=== PATIENT | female | born 1945 | race Caucasian/White ===

== ENCOUNTER 2016-08-22 11:19 | Emergency (ER) | payer MEDICARE, BC ==
[2016-08-22 11:42] VITALS: BP 131/72
--- NOTE | 2016-08-22 12:11 | EDM.PDOC ---
ED HPI GENERAL MEDICAL PROBLEM - General Chief Complaint: Lower Extremity Injury/Pain Stated Complaint: LT LEG PAIN Time Seen by Provider: 08/22/16 12:06 Source of Information: Reports: Patient History Limitations: Reports: No Limitations - History of Present Illness INITIAL COMMENTS - FREE TEXT/NARRATIVE: 71-year-old female presents for evaluation treatment of pain in the popliteal area of her left knee. Patient reports that the pain began night. She states this progressively worsened. She states pain is worse when she flexes her knee and cannot flex beyond 90. Patient denies any numbness or tingling to the leg distally. Patient reports that she is scheduled to have eye surgery on Wednesday. She is concerned she may have a blood clot. She states that her eye surgery has been canceled twice and she is concerned that if she does not have this evaluated today she may be forced to cancel the eye surgery again. Patient reports that she was in [place] recently. 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 Denies: Joint Swelling Skin: Denies: Erythema Neurological: Denies: Numbness, Tingling ED EXAM, GENERAL - Physical Exam Exam: See Below Exam Limited By: No Limitations General Appearance: Alert, WD/WN, No Apparent Distress Respiratory/Chest: No Respiratory Distress, Lungs Clear, Normal Breath Sounds Cardiovascular: Normal Peripheral Pulses, Regular Rate, Rhythm, No Murmur Peripheral Pulses: 2+: Posterior Tibial (L), Posterior Tibial (R), Dorsalis Pedis (L), Dorsalis Pedis (R) Extremities: Normal Inspection, Normal Range of Motion, Leg Pain (left posterior knee), Other (tenderness to the left popliteal fossa; negative anterior drawer and posterior drawer to the left knee; pain with flexion > 90 degrees to the left knee; no cyst appreciated). No: Joint Swelling, Lay's Sign, Increased Warmth Neurological: Alert, Oriented, Normal Cognition, Normal Gait Psychiatric: Normal Affect, Normal Mood Skin Exam: Warm, Dry. No: Erythema Course - Vital Signs Last Recorded V/S: Last Vital Signs Temp 37.1 C 08/22/16 11:39 Pulse 92 08/22/16 11:39 Resp 16 08/22/16 11:39 BP 131/72 08/22/16 11:39 Pulse Ox 96 08/22/16 11:39 - Radiology Interpretation Free Text/Narrative:: Ultrasound of the left lower extremity impression per [facility]: Normal left extremity duplex venous ultrasound. xray of the left knee shows a higher riding patella, degenerative changes, no acute fractures or dislocations. - Re-Assessments/Exams Free Text/Narrative Re-Assessment/Exam: 08/22/16 14:26 I reviewed the x-ray and ultrasound results with the patient. I feel she is likely experiencing some arthritic changes. She cannot take ibuprofen or NSAIDs due to her upcoming surgery. I advised her to take Tylenol, rest and ice the leg. She should utilize ibuprofen or Motrin after her surgery if she is able to. She should follow-up with her primary care provider for symptoms persist after her surgery. Discharge instructions as documented. Departure - Departure Time of Disposition: 14:28 Disposition: Home, Self-Care 01 Condition: Good Clinical Impression: Knee pain, left - Discharge Information Instructions: Knee Pain Referrals: Berenice Ponce DO [Primary Care Provider] - Forms: ED Department Discharge Additional Instructions: OTC tylenol or motrin after your surgery for pain. Ice the area 3 or 4 times a day for 10-15 minutes. Elevate if you appreciate swelling. Follow-up with PCP in 1-2 weeks if symptoms persist. Please return to the ER should your symptoms change or worsen. You had an ultrasound of the left lower extremity preformed in the ER that was negative for DVT or cyst. You had an xray of the left knee which did not show any acute fractures or dislocations.
--- NOTE | 2016-08-24 14:37 | CR ---
Left knee: AP, lateral and sunrise patellar views of the left knee were obtained. Mild medial joint space narrowing is seen. Lateral joint space is preserved. No joint effusion is seen. Minimal narrowing is noted off the lateral patellofemoral joint. No acute fracture or other abnormality is identified. Impression: 1. Mild degenerative change as noted above. Diagnostic code #2
--- NOTE | 2016-08-24 14:37 | US ---
Left lower extremity deep venous ultrasound: Duplex and color flow imaging was obtained of the left common femoral, proximal greater saphenous, superficial femoral, popliteal, posterior tibial and peroneal veins. Right common femoral vein was also evaluated. Normal phasic flow, augmentation and compression are seen. No popliteal cyst is identified. Impression: 1. No evidence of deep venous thrombosis within the left lower extremity or within the right common femoral vein. Diagnostic code #1 I agree with preliminary report issued by [facility] ([facility] preliminary report dictated on 08/22/16, 2:59 PM Central Time)
== END 2016-08-22 14:40 | disposition home or self-care (01) ==
LOC: JD.ED 11:19
DX: M25.562 Pain in left knee (principal); I10 Essential (primary) hypertension; Z79.899 Other long term (current) drug therapy
CPT/HCPCS: 73562-26-LT; 73562-LT; 93971-26-LT; 93971-LT; 99282; 99284-25

== ENCOUNTER 2016-12-22 10:58 | Day surgery (SDC) | payer MEDICARE, BC ==
[~2016-12-22 10:58] MED LIST: Cefuroxime 10 MG/ML SYRINGE EYERT SCH; Lidocaine 1% PF 2 ML SDV INJECT SCH; Pilocarpine 4% Ophth Soln 15 ML Bot EYERT SCH
[2016-12-22] MEDS: Polymyxin B/Trimethoprim 10 ML Bottle EYERT SCH ×3 (12:57→14:23)
[2016-12-22] MEDS: Brimonidine 0.2% Ophth Soln 5 ML Bottle EYERT SCH ×3 (13:02→14:23)
--- NOTE | 2016-12-22 13:02 | PCM.PREANE ---
Preanesthetic Assessment - Anesthesia/Transfusion/Family Hx Anesthesia History: Prior Anesthesia Reaction (1967 after D/C could not walk in straight line) Family History of Anesthesia Reaction: No Transfusion History: No Prior Transfusion(s) - Review of Systems General: No Symptoms Pulmonary: Cough Cardiovascular: No Symptoms Gastrointestinal: No Symptoms Neurological: No Symptoms Other: Reports: None - Physical Assessment NPO Status Date: 12/21/16 NPO Status Time: 17:30 Pulse: 78 O2 Sat by Pulse Oximetry: 95 Respiratory Rate: 16 Blood Pressure: 128/70 Temperature: 37.1 C Weight: 78.471 kg ASA Class: 2 Mental Status: Alert & Oriented x3 Airway Class: Mallampati = 1 Dentition: Reports: Normal Dentition Thyro-Mental Finger Breadths: 3 Mouth Opening Finger Breadths: 2 ROM/Head Extension: Full Lungs: Clear to Auscultation, Normal Respiratory Effort Cardiovascular: Regular Rate, Regular Rhythm, No Murmurs - Allergies Allergies/Adverse Reactions: Allergies Allergy/AdvReac Type Severity Reaction Status Date / Time No Known Allergies Allergy Verified 12/21/16 15:00 - Blood Blood Available: No Product(s) Available: None - Anesthesia Plan Pre-Op Medication Ordered: None - Acknowledgements Anesthesia Type Planned: MAC Pt an Appropriate Candidate for the Planned Anesthesia: Yes Alternatives and Risks of Anesthesia Discussed w Pt/Guardian: Yes Pt/Guardian Understands and Agrees with Anesthesia Plan: Yes PreAnesthesia Questionnaire Cardiovascular History: Reports: Hypertension Musculoskeletal History: Reports: Other (See Below) Other Musculoskeletal History: bone spurs to left foot - SUBSTANCE USE Smoking Status *Q: Never Smoker Tobacco Use Within Last Twelve Months: No Second Hand Smoke Exposure: No Days Per Week of Alcohol Use: 0 Number of Drinks Per Day: 0 Total Drinks Per Week: 0 Recreational Drug Use History: No - HOME MEDS Home Medications: Home Meds Ibuprofen [Motrin] 600 mg PO BID 08/22/16 [History] Lisinopril 5 mg PO DAILY 08/22/16 [History] Biotin 300 mcg PO DAILY 12/21/16 [History] Krill/Om-3/DHA/EPA/Phospho/Ast [Krill Oil 1,000 mg Softgel] 1 cap PO DAILY 12/21 [History] Multivitamin [Poly-Vitamin] 1 tab PO DAILY 12/21/16 [History] - CURRENT (IN HOUSE) MEDS Current Meds: Current Medications Brimonidine Tartrate (Alphagan 0.2% Ophth Soln) 0 ml EYERT ASDIRECTED GRACE Stop: 12/22/16 18:00 Cefuroxime Sodium (Zinacef) 0 mg EYERT ASDIRECTED GRACE Stop: 12/22/16 18:00 Lidocaine HCl (Xylocaine-Mpf 1%) 1 ml INJECT ASDIRECTED GRACE Stop: 12/22/16 18:00 Phenylephrine HCl (Asher-Synephrine 2.5% Ophth Soln) 0 ml EYERT ASDIRECTED GRACE Stop: 12/22/16 18:00 Pilocarpine HCl (Pilocar 4% Ophth Soln) 0 ml EYERT ASDIRECTED GRACE Stop: 12/22/16 18:00 Polymyxin/Trimethoprim Sulfate (Polytrim Ophth Soln) 0 ml EYERT ASDIRECTED GRACE Stop: 12/22/16 18:00 Tetracaine HCl (Tetracaine 0.5% Steri-Unit Niecy) 0 ml EYERT ASDIRECTED GRACE Stop: 12/22/16 18:00 Tropicamide (Mydriacyl 1% Ophth Soln) 0 ml EYERT ASDIRECTED GRACE Stop: 12/22/16 18:00
[2016-12-22] MEDS: Phenylephrine 2.5% Ophth Soln 2 ML Bot EYERT SCH ×5 (13:07→14:04)
[2016-12-22] MEDS: Tetracaine HCl/PF 0.5% 4 ML Bottle EYERT SCH ×2 (13:52→14:13)
--- NOTE | 2016-12-22 14:29 | PCM48HPAN ---
Post Anesthesia Note - EVALUATION WITHIN 48HRS OF ANESTHETIC Vital Signs in Normal Range: Yes Patient Participated in Evaluation: Yes Respiratory Function Stable: Yes Airway Patent: Yes Cardiovascular Function Stable: Yes Hydration Status Stable: Yes Pain Control Satisfactory: Yes Nausea and Vomiting Control Satisfactory: Yes Mental Status Recovered: Yes
[2016-12-22 14:42] VITALS: BP 130/84
== END 2016-12-22 14:40 | disposition home or self-care (01) ==
LOC: JD.SDS 10:58
PROVIDERS: ATTEND Ophthalmology
DX: H25.811 Combined forms of age-related cataract, right eye (principal); H35.373 Puckering of macula, bilateral; H02.831 Dermatochalasis of right upper eyelid; H02.834 Dermatochalasis of left upper eyelid; H43.811 Vitreous degeneration, right eye; I10 Essential (primary) hypertension; Z98.42 Cataract extraction status, left eye; Z96.1 Presence of intraocular lens; Z98.890 Other specified postprocedural states; Z79.899 Other long term (current) drug therapy
CPT/HCPCS: 66984; A9270; C1780; J0697

== ENCOUNTER → 2017-05-27 | Day surgery (SDC) | payer MEDICARE, BC ==
[~2017-05-27] MED LIST changes: -Cefuroxime 10 MG/ML SYRINGE EYERT SCH; -Lidocaine 1% PF 2 ML SDV INJECT SCH; +Phenylephrine 2.5% Ophth Soln 2 ML Bot EYERT SCH; -Pilocarpine 4% Ophth Soln 15 ML Bot EYERT SCH
[2017-05-27] MEDS: Brimonidine 0.2% Ophth Soln 5 ML Bottle EYERT SCH ×2 (11:14→11:55)
== END ==
LOC: JD.SDS 10:45
PROVIDERS: ATTEND Ophthalmology
DX: H25.811 Combined forms of age-related cataract, right eye (principal); I10 Essential (primary) hypertension; E78.00 Pure hypercholesterolemia, unspecified; Z79.899 Other long term (current) drug therapy